=== PATIENT | female | born 1960 | race Caucasian/White ===

== ENCOUNTER 2016-02-25 12:40 | Emergency (ER) | payer OTHER ==
[~2016-02-25] VITALS: Ht 160 cm; Wt 122.0 kg
[~2016-02-25 12:40] MED LIST: ACET500C5 PO; ALBU8.5H3 INH; AZIT250T94 PO; BENZ100C70 PO; BUTA1CAP39 PO; CHLO4TAB PO; ESTR1TAB23 PO; FLUT16SP17 NASAL; HYDR473S47 PO; IBUP800T25 PO; LEVO300T5 PO; LUN1 PO; MECL-77 PO; PRED20TA PO; PROM6.25 PO; PSEU120T51 PO; ZOC20 PO; ZOLP10TA PO
[2016-02-25 12:45] VITALS: Ht 160 cm; Wt 122.0 kg
[2016-02-25] MEDS: IBUPROFEN 600 MG TAB PO ONE ×2 (13:55→13:58)
--- NOTE | 2016-02-25 14:26 | ERD ---
ER Documentation Chief Complaint Date/Time DATE: 02/25/16 TIME: 14:12 Chief Complaint cough & cold & fever HPI 55 year old female with history of hyperlipidemia, CKD 3, fatty liver presenting to the emergency department complaining of shortness of breath, cough , fever and nasal congestion for the past week. Patient states that she has been seen at her primary care doctor, at [facility] who referred her here for pneumonia. Patient states that she has not taking any medications. She states that she has not been eating well. Denies any vomiting or diarrhea ROS All systems reviewed and are negative except as per history of present illness. Medications Home Meds Active Scripts Loratadine* (Claritin*) 10 Mg Tablet, 10 MG PO DAILY, #30 TAB Prov:EDWIN TAPIA PA-C 02/25/16 Promethazine HCl/Codeine (Prometh-Codein 6.25-10 mg/5 ml) 5 Ml Syrup, 5 ML PO Q6 Y for COUGH, #60 Prov:EDWIN TAPIA PA-C 02/25/16 Pseudoephedrine Hcl (Sudafed 12 Hour) 120 Mg Tablet.sa, 120 MG PO BID, #20 Prov:IRIS ADAMS PA-C 01/17/16 Azithromycin* (Zithromax*) 250 Mg Tablet, 250 MG PO .HerlindaPACK DIRECTED, #6 TAB TAKE 500 MG (2 TABS) THE FIRST DAY THEN 250 MG (1 TAB) DAYS 2-5 Prov:IRIS ADAMS PA-C 01/17/16 Hydrocodone/Homatropine Mbr* (Hycodan* Liq) 5 Ml Syrup, 5 ML PO Q4H Y for COUGH , #100 ML Prov:JOHNATHAN SARMIENTO PA-C 09/18/15 Benzonatate* (Tessalon Perle*) 100 Mg Capsule, 100 MG PO Q8H Y for COUGH, #30 CAP Prov:JOHNATHAN SARMIENTO PA-C 09/18/15 Prednisone* (Prednisone*) 20 Mg Tab, 40 MG PO DAILY for 4 Days, TAB Prov:JOHNATHAN SARMIENTO PA-C 09/18/15 Albuterol Sulfate* (Proair HFA*) 8.5 Gm Hfa.aer.ad, 2 PUFF INH Q4, #1 INHALER Prov:JOHNATHAN SARMIENTO PA-C 09/18/15 Meclizine Hcl* (Meclizine Hcl*) 25 Mg Tablet, 25 MG PO Q8H Y for dizziness, #30 TAB Prov:JEAN CARLOS ALMANZAR MANAGER CONCRETE 03/18/15 Akyemwwygcnvg-Aqhxjzdskw-Cqcibqcl-Codeine* (Fioricet w/ Codeine*) [id number]- 30MG Capsule, 1 CAP PO Q6H Y for PAIN LEVEL 1-5, #60 CAP Prov:JEAN CARLOS ALMANZAR MANAGER CONCRETE 03/18/15 Acetaminophen* (Tylophen*) 500 Mg Capsule, 1 CAP PO Q6H Y for PAIN AND OR ELEVATED TEMP, #20 CAP Prov:EDWIN TAPIA PA-C 12/10/14 Ibuprofen* (Motrin*) 800 Mg Tab, 800 MG PO Q6H Y for PAIN AND OR ELEVATED TEMP, #30 TAB Prov:EDWIN TAPIA PA-C 12/10/14 Chlorpheniramine Maleate* (Chlor-Trimeton*) 4 Mg Tablet, 4 MG PO Q4H, #15 TAB NOT TO EXCEED 24 MG /24 HRS Prov:MESERET BARON DO 10/17/14 Fluticasone Propionate* (Fluticasone Propionate* Nasal) 50 Mcg/[place] - 16 Gm [place].susp, 2 SPRAYS NASAL DAILY, #1 EA TO EACH NOSTRIL Prov:MESERET BARON DO 10/17/14 Promethazine w/Codeine* (Phenergan w/Codeine* Syrup) 5 Ml Syrup, 5 ML PO Q4H Y for COUGH, #8 OZ Prov:MESERET BARON DO 10/17/14 Prednisone* (Prednisone*) 20 Mg Tab, 40 MG PO DAILY for 3 Days, TAB Prov:MESERET BARON DO 10/17/14 Reported Medications Levothyroxine Sodium* (Levothyroxine Sodium*) 300 Mcg Tablet, 300 MCG PO AC BREAKFAST, TAB 01/04/14 Simvastatin (Simvastatin) 20 Mg Tablet, 20 MG PO HS, TAB 01/04/14 Zolpidem Tartrate* (Ambien*) 10 Mg Tablet, 10 MG PO HS Y for INSOMNIA, TAB 01/04/14 Eszopiclone (Lunesta) 1 Mg Tablet, 1 MG PO HS Y for INSOMNIA, TAB 01/04/14 Estradiol* (Estrace*) 1 Mg Tablet, 1 MG PO DAILY, TAB 01/04/14 Allergies Allergies: Coded Allergies: No Known Allergy (Unverified , 03/18/15) PMhx/Soc History of Surgery: Yes (thyroidectomy; HYSTERRECTOMY) Anesthesia Reaction: No Hx Neurological Disorder: Yes (migraine) Hx Respiratory Disorders: Yes (asthma/COPD) Hx Cardiac Disorders: No Hx Psychiatric Problems: No Hx Miscellaneous Medical Probl: Yes (hypothyroid; SLEEP APNEA) Hx Alcohol Use: No Hx Substance Use: No Hx Tobacco Use: No Physical Exam Vitals Vital Signs Date Time Temp Pulse Resp B/P Pulse Ox O2 Delivery O2 Flow Rate FiO2 02/25/16 12:45 98.2 96 20 184/102 97 Physical Exam GENERAL: well-developed/well-nourished, in no apparent distress, non-toxic appearing HEAD: NC/AT, no swelling noted in frontal or maxillary areas EARS: bilateral tympanic membrane is intact without erythema or effusion NARES: nares congested THROAT: oropharynx non- erythematous without exudates, no tonsil enlargement EYES: Conjunctiva normal NECK: Supple, no lymphadenopathy PULM: CTA bilaterally, no rales, rhonchi, or wheezing heard CV: Normal S1S2, RRR, good capillary refill GI: Soft, non-distended, normal bowel sounds, non-tender BACK: No midline tenderness, no masses EXT No clubbing, cyanosis, or edema NEURO: Alert and Orientated SKIN: Intact, normal turgor PSYCH: Normal mood and mentation Results 24 hrs Current Medications Medications (Trade) Dose Ordered Sig/Pau Route PRN Reason Start Time Stop Time Status Last Admin Dose Admin Ibuprofen (Motrin) 600 mg ONCE ONCE PO 02/25/16 14:00 02/25/16 14:01 DC Procedures/MDM This is a 55 year old female presenting to the ER with cough, congestion, subjective fevers and shortness of breath for one week, which is most likely viral. Patient has been seen here numerous times before for same symptoms. Patient states that she has been seen at her primary care doctor, at [facility] who referred her here for pneumonia. Patient appeared well , she did not seem to have any respiratory distress or labored breathing. She was afebrile and not tachycardiac. My clinical suspicion is low suspicion for pneumonia, strep pharyngitis, or pulmonary emergencies due to physical examination. Patient's lungs were clear on examination. Ibuprofen was provided in the ED however patient refused. A chest x-ray was done and radiologist stated: 1. Unremarkable chest x-ray. 2. Stable appearances over time. I have called regarding the results and he states that he will follow up with patient tomorrow. I discussed with the patient and she states that she will see him tomorrow hemodynamically stable for discharge. Prescription for promethazine with codeine and Claritin was given to patient, discussed to return to the ED if not improving as expected or follow-up with a primary care physician. Patient understood and agreed with this plan. Departure Diagnosis: Primary Impression: URI (upper respiratory infection) URI type: unspecified viral URI Qualified Code: J06.9 - Viral upper respiratory tract infection Condition: Stable EDWIN TAPIA PA-C Feb 25, 2016 14:26
--- NOTE | 2016-02-25 14:30 | RADRPT ---
PROCEDURE: XR Chest. CLINICAL INDICATION: Cough and Shortness of Breath. TECHNIQUE: PA and lateral chest x-ray. COMPARISON: 01/17/2016 FINDINGS: The lungs are clear. No focal opacification is seen. The pleural margins are clear without evidenc e for effusion or pneumothorax. The cardiomediastinal silhouette is unremarkable. The osseous stru ctures are unremarkable. IMPRESSION: 1. Unremarkable chest x-ray. 2. Stable appearances over time. RPTAT: HMJB .Gordo Cummings MD, MD Date Time Electronically viewed and signed by .Gordo Cummings MD, on 02/25/2016 14:30 .B/
[2016-02-25] MEDS ORDERED: LORA-186 PO (14:48)
[2016-02-25] MEDS ORDERED: PROM5SYR2 PO (14:48)
== END 2016-02-25 15:17 | disposition home or self-care (01) ==
LOC: FTE 12:40
DX: J06.9 Acute upper respiratory infection, unspecified (principal); J44.9 Chronic obstructive pulmonary disease, unspecified; E03.9 Hypothyroidism, unspecified; N18.3 Chronic kidney disease, stage 3 (moderate)
CPT/HCPCS: 71020; Z7502; Z7610

== ENCOUNTER 2016-09-06 18:29 | Emergency (ER) | payer OTHER ==
[~2016-09-06] VITALS: Ht 160 cm; Wt 125.0 kg
[~2016-09-06 18:29] MED LIST changes: +LORA-186 PO; +PROM5SYR2 PO; +SIMV20TA2 PO; -ZOC20 PO
[2016-09-06 18:32] VITALS: Ht 160 cm; Wt 125.0 kg
[2016-09-06] MEDS ORDERED: HYDR-902 PO (18:53)
[2016-09-06] MEDS ORDERED: CEPH-443 PO (18:53)
[2016-09-06] MEDS ORDERED: SULF1TAB31 PO (18:53)
--- NOTE | 2016-09-06 19:47 | ERD ---
ER Documentation Chief Complaint Date/Time DATE: 09/06/16 TIME: 19:45 Chief Complaint swelling right hand since yesterday HPI Patient is a 56-year-old female with chronic kidney disease who presents with right-sided hand pain and swelling. She said that it started yesterday morning and feels like "something bit me". She denies trauma. She has had no fevers. She tried Excedrin. She is right-handed. The swelling is mainly in the third finger but she does have pain in the second and first fingers as well and pain radiating up into her right wrist. Upon review of old medical records this is the patient's 11th visit to the ER since 2013. Her primary doctor is Dr. Sherwood. ROS All systems reviewed and are negative except as per history of present illness. Medications Home Meds Active Scripts Hydrocodone/Acetaminophen ([place] 10-325 Tablet) 1 Each Tablet, 1 TAB PO Q6H Y for PAIN, #12 TAB Prov:ROSITA CORREA MD 09/06/16 Sulfamethoxazole/Trimethoprim* (Bactrim Ds* Tablet) 1 Each Tablet, 1 TAB PO BID , #14 TAB Prov:ROSITA CORREA MD 09/06/16 Cephalexin* (Keflex*) 500 Mg Capsule, 500 MG PO QID for 7 Days, CAP Prov:ROSITA CORREA MD 09/06/16 Loratadine* (Claritin*) 10 Mg Tablet, 10 MG PO DAILY, #30 TAB Prov:EDWIN TAPIA PA-C 02/25/16 Promethazine HCl/Codeine (Prometh-Codein 6.25-10 mg/5 ml) 5 Ml Syrup, 5 ML PO Q6 Y for COUGH, #60 Prov:EDWIN TAPIA PA-C 02/25/16 Pseudoephedrine Hcl (Sudafed 12 Hour) 120 Mg Tablet.sa, 120 MG PO BID, #20 Prov:IRIS ADAMS PA-C 01/17/16 Azithromycin* (Zithromax*) 250 Mg Tablet, 250 MG PO .LISA DIRECTED, #6 TAB TAKE 500 MG (2 TABS) THE FIRST DAY THEN 250 MG (1 TAB) DAYS 2-5 Prov:IRIS ADAMS PA-C 01/17/16 Hydrocodone/Homatropine Mbr* (Hycodan* Liq) 5 Ml Syrup, 5 ML PO Q4H Y for COUGH , #100 ML Prov:JOHNATHAN SARMIENTO PA-C 09/18/15 Benzonatate* (Tessalon Perle*) 100 Mg Capsule, 100 MG PO Q8H Y for COUGH, #30 CAP Prov:JOHNATHAN SARMIENTO PA-C 09/18/15 Prednisone* (Prednisone*) 20 Mg Tab, 40 MG PO DAILY for 4 Days, TAB Prov:JOHNATHAN SARMIENTO PA-C 09/18/15 Albuterol Sulfate* (Proair HFA*) 8.5 Gm Hfa.aer.ad, 2 PUFF INH Q4, #1 INHALER Prov:JOHNATHAN SARMIENTO PA-C 09/18/15 Meclizine Hcl* (Meclizine Hcl*) 25 Mg Tablet, 25 MG PO Q8H Y for dizziness, #30 TAB Prov:JEAN CARLOS ALMANZAR NP 03/18/15 Dwcrefkftdthe-Gitghhniru-Urqurwgg-Codeine* (Fioricet w/ Codeine*) [id number]- 30MG Capsule, 1 CAP PO Q6H Y for PAIN LEVEL 1-5, #60 CAP Prov:JEAN CARLOS ALMANZAR SHORT STORY WRITER 03/18/15 Acetaminophen* (Tylophen*) 500 Mg Capsule, 1 CAP PO Q6H Y for PAIN AND OR ELEVATED TEMP, #20 CAP Prov:EDWIN TAPIA PA-C 12/10/14 Ibuprofen* (Motrin*) 800 Mg Tab, 800 MG PO Q6H Y for PAIN AND OR ELEVATED TEMP, #30 TAB Prov:EDWIN TAPIA PA-C 12/10/14 Chlorpheniramine Maleate* (Chlor-Trimeton*) 4 Mg Tablet, 4 MG PO Q4H, #15 TAB NOT TO EXCEED 24 MG /24 HRS Prov:MESERET BARON DO 10/17/14 Fluticasone Propionate* (Fluticasone Propionate* Nasal) 50 Mcg/[place] - 16 Gm [place].susp, 2 SPRAYS NASAL DAILY, #1 EA TO EACH NOSTRIL Prov:MESERET BARON DO 10/17/14 Promethazine w/Codeine* (Phenergan w/Codeine* Syrup) 5 Ml Syrup, 5 ML PO Q4H Y for COUGH, #8 OZ Prov:MESERET BARON DO 10/17/14 Prednisone* (Prednisone*) 20 Mg Tab, 40 MG PO DAILY for 3 Days, TAB Prov:MESERET BARON DO 10/17/14 Reported Medications Levothyroxine Sodium* (Levothyroxine Sodium*) 300 Mcg Tablet, 300 MCG PO AC BREAKFAST, TAB 01/04/14 Simvastatin (Simvastatin) 20 Mg Tablet, 20 MG PO HS, TAB 01/04/14 Zolpidem Tartrate* (Ambien*) 10 Mg Tablet, 10 MG PO HS Y for INSOMNIA, TAB 01/04/14 Eszopiclone (Lunesta) 1 Mg Tablet, 1 MG PO HS Y for INSOMNIA, TAB 01/04/14 Estradiol* (Estrace*) 1 Mg Tablet, 1 MG PO DAILY, TAB 01/04/14 Allergies Allergies: Coded Allergies: No Known Allergy (Unverified , 03/18/15) PMhx/Soc History of Surgery: Yes (thyroidectomy; HYSTERRECTOMY) Anesthesia Reaction: No Hx Neurological Disorder: Yes (migraine) Hx Respiratory Disorders: Yes (asthma/COPD) Hx Cardiac Disorders: No Hx Psychiatric Problems: No Hx Miscellaneous Medical Probl: Yes (hypothyroid; SLEEP APNEA) Hx Alcohol Use: No Hx Substance Use: No Hx Tobacco Use: No Smoking Status: Never smoker FmHx Family History: No diabetes Physical Exam Vitals Vital Signs Date Time Temp Pulse Resp B/P Pulse Ox O2 Delivery O2 Flow Rate FiO2 09/06/16 18:32 97.5 86 20 176/90 98 Physical Exam Const: No acute distress Head: Atraumatic Eyes: Normal Conjunctiva ENT: Normal External Ears, Nose and Mouth. Neck: Full range of motion..~ No meningismus. Resp: Clear to auscultation bilaterally Cardio: Regular rate and rhythm, no murmurs Abd: Soft, non tender, non distended. Normal bowel sounds Skin: Mild swelling to the right third finger without tracking up the arm Back: No midline or flank tenderness Ext: Swelling to the right third finger without sign of obvious flexor tenosynovitis Neur: Awake and alert Psych: Normal Mood and Affect Procedures/MDM Patient is a 56-year-old female presents with right third finger swelling and pain. The patient feels like she may have been bitten by something in the night and that she may have an infection at this time. At this point I doubt flexor tenosynovitis but I will treat her with antibiotics for a presumed cellulitis. The patient will be given Keflex and Bactrim for 1 week. She will be given [place] for pain. She can return for any worsening symptoms. At this point I believe outpatient management is appropriate. Departure Diagnosis: Primary Impression: Cellulitis Site of cellulitis: extremity Site of cellulitis of extremity: upper extremity Laterality: right Qualified Code: L03.113 - Cellulitis of right upper extremity Additional Impression: Swelling Condition: Fair Patient Instructions: Cellulitis Additional Instructions: Call your primary care doctor TOMORROW for an appointment during the next 1-2 days.See the doctor sooner or return here if your condition worsens before your appointment time. ROSITA CORREA MD Sep 06, 2016 19:47
== END 2016-09-06 19:16 | disposition home or self-care (01) ==
LOC: FTE 18:29
DX: L03.113 Cellulitis of right upper limb (principal); J44.9 Chronic obstructive pulmonary disease, unspecified; E03.9 Hypothyroidism, unspecified
CPT/HCPCS: 99284

== ENCOUNTER 2017-04-10 07:40 | Emergency (ER) | END 2017-04-10 12:15 | disposition home or self-care (01) ==